=== PATIENT | male | born 1940 | race Caucasian/White ===

== ENCOUNTER 2020-03-19 15:56 | Inpatient (IN) | payer MEDICARE, OTHER ==
[2020-03-19] MEDS ORDERED: Acetaminophen 325 MG Tab PO PRN (16:34)
[2020-03-19] MEDS ORDERED: Albuterol/Ipratropium 3.0-0.5 MG/3 ML Neb Soln NEB PRN (16:34)
[2020-03-19] MEDS ORDERED: Ondansetron 4 MG/2 ML SDV IVPUSH PRN (16:34)
--- NOTE | 2020-03-19 16:44 | PCM.HP.2 ---
H&P History of Present Illness - General Date of Service: 03/19/20 Admit Problem/Dx: Admission Diagnosis/Problem Admission Diagnosis/Problem Hypoxia - History of Present Illness Initial Comments - Free Text/Narative: Patient is a 79 y/o M with PMH of prostate cancer, not on any treatment (reportedly slow growing), comes in from respiratory clinic as direct admit for acute hypoxic respiratory failure due to COVID19. Patient has been feeling worn out and tired for past week, He was recently tested for covid the results of that test were still pending, he states that one of his friends recently tested positive for covid so he suspected he had it as well. He lost his sense of smell and taste the last couple of days which is not getting better.. Patient came into the respiratory clinic today where he was checked for covid again which showed positive result. His oxygen saturation on room air was 88 to 89%, he was started on oxygen via nasal cannula which improved his oxygen levels. Chest xray was obtained which showed possible early signs of pneumonia. Patient was admitted to the hospital for management of acute hypoxic respiratory failure secondary to covid 19. - Related Data Allergies/Adverse Reactions: Allergies Allergy/AdvReac Type Severity Reaction Status Date / Time peanut Allergy Sneezing Verified 03/19/20 16:42 Home Medications: Home Meds Ubidecarenone [Co Q-10] 100 mg PO DAILY 03/19/20 [History] hydroCHLOROthiazide [Hydrochlorothiazide] 12.5 mg PO QAM 03/19/20 [History] lisinopriL [Prinivil] 20 mg PO DAILY 03/19/20 [History] H&P Review of Systems - Review of Systems: Review Of Systems: See Below General: Reports: Malaise, Weakness, Fatigue. Denies: Fever, Chills HEENT: Denies: Dysphasia, Ear Pain Pulmonary: Reports: Shortness of Breath, Cough. Denies: Wheezing, Pleuritic Chest Pain, Sputum Cardiovascular: Reports: Dyspnea on Exertion. Denies: Chest Pain, Palpitations, Orthopnea, Lightheadedness, Syncope Gastrointestinal: Reports: Anorexia. Denies: Abdominal Pain Genitourinary: Denies: Dysuria, Frequency, Burning Musculoskeletal: Denies: Neck Pain, Shoulder Pain, Arm Pain Skin: Denies: Cyanosis, Jaundice, Mottled Psychiatric: Denies: Confusion, Depression, Mood Lability Neurological: Reports: Headache. Denies: Confusion, Dizziness, Paresthesia, Seizure Exam - Exam Exam: See Below - Exam Quality Assessment: Supplemental Oxygen General: Alert, Oriented Neck: Supple, Trachea Midline Lungs: Normal Respiratory Effort, Decreased Breath Sounds, Rales Cardiovascular: Regular Rate, Regular Rhythm GI/Abdominal Exam: Normal Bowel Sounds, Soft, Non-Tender Skin: Warm, Intact - Problem List (1) Acute hypoxemic respiratory failure due to COVID-19 SNOMED Code(s): 384531186 ICD Code: U07.1 - COVID-19; J96.01 - ACUTE RESPIRATORY FAILURE WITH HYPOXIA Status: Acute Current Visit: Yes (2) Community acquired bacterial pneumonia SNOMED Code(s): 376433405, 033389624 ICD Code: J15.9 - UNSPECIFIED BACTERIAL PNEUMONIA Status: Acute Current Visit: Yes Problem List Initiated/Reviewed/Updated: Yes Orders Last 24hrs: Active Orders 24 hr Category Date Time Status Patient Status [ADT] Routine ADT 03/19/20 16:34 Active Ambulate [RC] PER UNIT ROUTINE Care 03/19/20 16:36 Active Antiembolic Devices [RC] PER UNIT ROUTINE Care 03/19/20 16:37 Active Oxygen Therapy [RC] PRN Care 03/19/20 16:34 Active Pulse Oximetry [RC] PRN Care 03/19/20 16:36 Active RT Aerosol Therapy [RC] ASDIRECTED Care 03/19/20 16:38 Active VTE/DVT Education [RC] PER UNIT ROUTINE Care 03/19/20 16:34 Active Vital Signs [RC] Q4H Care 03/19/20 16:34 Active CBC WITH AUTO DIFF [HEME] AM Lab 03/20/20 05:11 Ordered CMP [COMPREHENSIVE METABOLIC PN,CMP] [CHEM] AM Lab 03/20/20 05:11 Ordered MAGNESIUM [CHEM] AM Lab 03/20/20 05:11 Ordered PHOSPHORUS [CHEM] AM Lab 03/20/20 05:11 Ordered Acetaminophen [TylenoL] Med 03/19/20 16:34 Ordered 650 mg PO Q4H PRN Albuterol/Ipratropium [DuoNeb 3.0-0.5 MG/3 ML] Med 03/19/20 16:34 Ordered 3 ml NEB Q4HRRT PRN Enoxaparin [Lovenox] Med 03/19/20 16:45 Ordered 40 mg SUBCUT Q24H Ondansetron [Zofran] Med 03/19/20 16:34 Ordered 4 mg IVPUSH Q4H PRN Pantoprazole [ProTONIX IV] Med 03/19/20 16:45 Ordered 40 mg IV Q24H dexAMETHasone Med 03/19/20 16:45 Ordered 10 mg PO DAILY Sequential Compression Device [OM.PC] Per Unit Routine Oth 03/19/20 16:37 Ordered Medication Orders Acetaminophen (Tylenol) 650 mg PO Q4H PRN PRN Reason: Pain (Mild 1-3)/fever Albuterol/Ipratropium (Duoneb 3.0-0.5 Mg/3 Ml) 3 ml NEB Q4HRRT PRN PRN Reason: Shortness Of Breath/wheezing Dexamethasone (Dexamethasone) 10 mg PO DAILY ÁNGEL Enoxaparin Sodium (Lovenox) 40 mg SUBCUT Q24H ÁNGEL Ondansetron HCl (Zofran) 4 mg IVPUSH Q4H PRN PRN Reason: Nausea/Vomiting Pantoprazole Sodium (Protonix Iv) 40 mg IV Q24H ÁNGEL Assessment/Plan Comment:: 79-year-old male admitted for acute hypoxic respiratory failure secondary to COVID-19 and possible community acquired pneumonia. Admit to inpatient, start telling monitoring, start on supplemental oxygen via nasal cannula been down as tolerated. Start patient on remdesivir 200 mg IV loading those followed by 100 mg IV daily, consent has already been obtained. Start dexamethasone 6 mg oral for 10 days start Lovenox for DVT prophylaxis start azithromycin and ceftriaxone for community acquired pneumonia monitor and replete electrolytes as needed
[2020-03-19] MEDS ORDERED: Pantoprazole 40 MG Vial IV SCH (16:45)
[2020-03-19] MEDS: Dexamethasone 4 MG Tab PO SCH (17:23)
[2020-03-19] MEDS: Enoxaparin 40 MG/0.4 ML Syringe SUBCUT SCH (17:24)
[2020-03-19] MEDS: cefTRIAXone 1 GM in Premix Bag 1 BAG IV SCH (18:45)
[2020-03-19] MEDS: Pantoprazole 40 MG in Sodium Chloride 0.9% 10 ML IV SCH (18:46)
[2020-03-19] MEDS: Azithromycin 500 MG in Sodium Chloride 0.9% 250 ML IV SCH (20:05)
[2020-03-19] MEDS ORDERED: REMDESIVIR 200 MG in Sodium Chloride 0.9% 250 ML IV ONE (20:32)
[2020-03-20 06:17] LABS: BLOOD UREA NITROGEN,BUN 18 mg/dL (7.0-18.0); CARBON DIOXIDE,CO2 27.1 mmol/L (21.0-32.0); CHLORIDE,CL 99 mmol/L (98-107); GLUCOSE RANDOM 163 mg/dL (74-106); POTASSIUM,K 3.4 mmol/L (3.5-5.1); SODIUM,NA 134 mmol/L (136-148)
[2020-03-20] MEDS ORDERED: REMDESIVIR 100 MG in Sodium Chloride 0.9% 100 ML IV SCH (09:00)
[2020-03-20] MEDS: Dexamethasone 4 MG Tab PO SCH (09:06)
--- NOTE | 2020-03-20 13:09 | PCM.PN ---
- General Info Date of Service: 03/20/20 - Review of Systems Systems Review Comment:: feeling better, shortness of breath improving - Patient Data Vitals - Most Recent: Last Vital Signs Temp 36.1 C 03/20/20 11:36 Pulse 65 03/20/20 11:36 Resp 18 03/20/20 11:36 BP 130/73 03/20/20 11:36 Pulse Ox 93 L 03/20/20 11:36 Weight - Most Recent: 114.804 kg I&O - Last 24 Hours: Intake & Output 03/19/20 03/20/20 03/20/20 22:59 06:59 14:59 Intake Total 550 450 Output Total 600 Balance 550 -150 Lab Results Last 24 Hours: Laboratory Results - last 24 hr 03/20/20 03/20/20 Range/Units 05:27 05:27 WBC 1.90 L (4.0-11.0) K/uL RBC 4.56 (4.50-5.90) M/uL Hgb 14.0 (13.0-17.0) g/dL Hct 42.2 (38.0-50.0) % MCV 92.5 (80.0-98.0) fL MCH 30.7 (27.0-32.0) pg MCHC 33.2 (31.0-37.0) g/dL RDW Std Deviation 46.8 (28.0-62.0) fl RDW Coeff of Ellyn 14 (11.0-15.0) % Plt Count 118 L (150-400) K/uL MPV 11.20 (7.40-12.00) fL Add Manual Diff YES Neutrophils % (Manual) 69 (48.0-80.0) % Band Neutrophils % 2 % Lymphocytes % (Manual) 23 (16.0-40.0) % Monocytes % (Manual) 6 (0.0-15.0) % Nucleated RBC % 0.0 /100WBC Absolute Seg Neuts 1.3 L (1.4-5.7) Band Neutrophils # 0 Lymphocytes # (Manual) 0.4 L (0.6-2.4) Monocytes # (Manual) 0.1 (0.0-0.8) Nucleated RBCs # 0 K/uL Sodium 134 L (136-148) mmol/L Potassium 3.4 L (3.5-5.1) mmol/L Chloride 99 (98-107) mmol/L Carbon Dioxide 27.1 (21.0-32.0) mmol/L BUN 18 (7.0-18.0) mg/dL Creatinine 1.1 (0.8-1.3) mg/dL Est Cr Clr Drug Dosing 56.09 mL/min Estimated GFR (MDRD) > 60.0 ml/min Glucose 163 H (74-106) mg/dL Calcium 7.7 L (8.5-10.1) mg/dL Phosphorus 2.6 (2.6-4.7) mg/dL Magnesium 2.3 (1.8-2.4) mg/dL Total Bilirubin 0.5 (0.2-1.0) mg/dL AST 68 H (15-37) IU/L ALT 74 H (14-63) IU/L Alkaline Phosphatase 105 (46-116) U/L Total Protein 5.9 L (6.4-8.2) g/dL Albumin 2.7 L (3.4-5.0) g/dL Globulin 3.2 (2.6-4.0) g/dL Albumin/Globulin Ratio 0.8 L (0.9-1.6) Med Orders - Current: Current Medications Acetaminophen (Tylenol) 650 mg PO Q4H PRN PRN Reason: Pain (Mild 1-3)/fever Albuterol/Ipratropium (Duoneb 3.0-0.5 Mg/3 Ml) 3 ml NEB Q4HRRT PRN PRN Reason: Shortness Of Breath/wheezing Dexamethasone (Dexamethasone) 10 mg PO DAILY [facility] Last Admin: 03/20/20 09:06 Dose: 10 mg Documented by: Enoxaparin Sodium (Lovenox) 40 mg SUBCUT Q24H [facility] Last Admin: 03/19/20 17:24 Dose: 40 mg Documented by: Pantoprazole Sodium 40 mg/ (Sodium Chloride) 10 mls @ 300 mls/hr IV Q24H [facility] Last Admin: 03/19/20 18:46 Dose: 300 mls/hr Documented by: Azithromycin 500 mg/ Sodium (Chloride) 250 mls @ 250 mls/hr IV Q24H [facility] Last Admin: 03/19/20 20:05 Dose: 250 mls/hr Documented by: Ceftriaxone Sodium/Dextrose 1 (gm/ Premix) 50 mls @ 100 mls/hr IV Q24H [facility] Last Admin: 03/19/20 18:45 Dose: 100 mls/hr Documented by: Remdesivir 100 mg/ Sodium (Chloride) 100 mls @ 100 mls/hr IV Q24H [facility] Stop: 03/23/20 21:00 Ondansetron HCl (Zofran) 4 mg IVPUSH Q4H PRN PRN Reason: Nausea/Vomiting Discontinued Medications Remdesivir 200 mg/ Sodium (Chloride) 250 mls @ 250 mls/hr IV ONETIME ONE Stop: 03/19/20 20:33 Last Admin: 03/19/20 21:45 Dose: 250 mls/hr Documented by: - Exam General: Alert, Oriented Neck: Supple Lungs: Clear to Auscultation, Normal Respiratory Effort Cardiovascular: Regular Rate, Regular Rhythm Extremities: Non-Tender, No Pedal Edema Skin: Warm, Dry, Intact Sepsis Event Note - Evaluation Sepsis Screening Result: No Definite Risk - Focused Exam Vital Signs: Vital Signs Temp Pulse Resp BP Pulse Ox 03/20/20 11:36 36.1 C 65 18 130/73 93 L 03/20/20 09:13 18 93 L 03/20/20 07:51 36.9 C 62 18 124/79 96 03/20/20 04:52 36.1 C 56 L 18 118/74 92 L - Problem List Review Problem List Initiated/Reviewed/Updated: Yes - My Orders Last 24 Hours: My Active Orders 03/21/20 05:11 CBC WITH AUTO DIFF [HEME] AM COMPREHENSIVE METABOLIC PN,CMP [CHEM] AM 03/22/20 05:11 CBC WITH AUTO DIFF [HEME] AM COMPREHENSIVE METABOLIC PN,CMP [CHEM] AM 03/23/20 05:11 CBC WITH AUTO DIFF [HEME] AM COMPREHENSIVE METABOLIC PN,CMP [CHEM] AM 03/24/20 05:11 CBC WITH AUTO DIFF [HEME] AM COMPREHENSIVE METABOLIC PN,CMP [CHEM] AM - Plan Plan:: 79-year-old male admitted for acute hypoxic respiratory failure secondary to COVID-19 and possible community acquired pneumonia. Continue remdesivir, dexamethason and lovenox, wean O2 as tolerated azithromycin and ceftriaxone for community acquired pneumonia
[2020-03-20] MEDS ORDERED: Potassium Chloride 20 MEQ Tab.ER PO ONE (13:30)
[2020-03-20] MEDS: Pantoprazole 40 MG in Sodium Chloride 0.9% 10 ML IV SCH (17:12)
[2020-03-20] MEDS: cefTRIAXone 1 GM in Premix Bag 1 BAG IV SCH (17:13)
[2020-03-20] MEDS: Enoxaparin 40 MG/0.4 ML Syringe SUBCUT SCH (17:13)
[2020-03-20] MEDS: Azithromycin 500 MG in Sodium Chloride 0.9% 250 ML IV SCH (17:59)
[2020-03-20] MEDS: REMDESIVIR 100 MG in Sodium Chloride 0.9% 100 ML IV SCH (20:34)
[2020-03-21 06:44] LABS: BLOOD UREA NITROGEN,BUN 25 mg/dL (7.0-18.0); CARBON DIOXIDE,CO2 29.2 mmol/L (21.0-32.0); CHLORIDE,CL 101 mmol/L (98-107); GLUCOSE RANDOM 150 mg/dL (74-106); POTASSIUM,K 3.9 mmol/L (3.5-5.1); SODIUM,NA 137 mmol/L (136-148)
[2020-03-21] MEDS: Dexamethasone 4 MG Tab PO SCH (08:43)
[2020-03-21] MEDS ORDERED: Carboxymethylcellulose Sodium 0.5% Ophth Soln 0.4 ML UD Box of 30 EYEBOTH PRN (10:32)
--- NOTE | 2020-03-21 15:34 | PCM.PN ---
- General Info Date of Service: 03/21/20 - Review of Systems Systems Review Comment:: feeling better, still short of breath, fevers improving - Patient Data Vitals - Most Recent: Last Vital Signs Temp 36.2 C 03/21/20 11:23 Pulse 66 03/21/20 11:23 Resp 16 03/21/20 11:23 BP 107/56 L 03/21/20 11:23 Pulse Ox 93 L 03/21/20 11:23 Weight - Most Recent: 114.804 kg I&O - Last 24 Hours: Intake & Output 03/21/20 03/21/20 03/21/20 06:59 14:59 22:59 Intake Total 650 Output Total 820 Balance -170 Lab Results Last 24 Hours: Laboratory Results - last 24 hr 03/21/20 03/21/20 03/21/20 Range/Units 06:05 06:05 11:45 WBC 11.23 H (4.0-11.0) K/uL RBC 4.64 (4.50-5.90) M/uL Hgb 13.9 (13.0-17.0) g/dL Hct 43.1 (38.0-50.0) % MCV 92.9 (80.0-98.0) fL MCH 30.0 (27.0-32.0) pg MCHC 32.3 (31.0-37.0) g/dL RDW Std Deviation 47.5 (28.0-62.0) fl RDW Coeff of Ellyn 14 (11.0-15.0) % Plt Count 161 (150-400) K/uL MPV 11.80 (7.40-12.00) fL Neut % (Auto) 86.6 H (48.0-80.0) % Lymph % (Auto) 5.0 L (16.0-40.0) % [place] % (Auto) 8.4 (0.0-15.0) % Eos % (Auto) 0.0 (0.0-7.0) % Baso % (Auto) 0.0 (0.0-1.5) % Neut # (Auto) 9.7 H (1.4-5.7) K/uL Lymph # (Auto) 0.6 (0.6-2.4) K/uL [place] # (Auto) 0.9 H (0.0-0.8) K/uL Eos # (Auto) 0.0 (0.0-0.7) K/uL Baso # (Auto) 0.0 (0.0-0.1) K/uL Nucleated RBC % 0.0 /100WBC Nucleated RBCs # 0 K/uL Sodium 137 (136-148) mmol/L Potassium 3.9 (3.5-5.1) mmol/L Chloride 101 (98-107) mmol/L Carbon Dioxide 29.2 (21.0-32.0) mmol/L BUN 25 H (7.0-18.0) mg/dL Creatinine 1.1 (0.8-1.3) mg/dL Est Cr Clr Drug Dosing 56.09 mL/min Estimated GFR (MDRD) > 60.0 ml/min Glucose 150 H (74-106) mg/dL POC Glucose 154 H (60-110) mg/dL Calcium 7.5 L (8.5-10.1) mg/dL Total Bilirubin 0.5 (0.2-1.0) mg/dL AST 55 H (15-37) IU/L ALT 77 H (14-63) IU/L Alkaline Phosphatase 97 (46-116) U/L Total Protein 5.7 L (6.4-8.2) g/dL Albumin 2.6 L (3.4-5.0) g/dL Globulin 3.1 (2.6-4.0) g/dL Albumin/Globulin Ratio 0.8 L (0.9-1.6) Med Orders - Current: Current Medications Acetaminophen (Tylenol) 650 mg PO Q4H PRN PRN Reason: Pain (Mild 1-3)/fever Albuterol/Ipratropium (Duoneb 3.0-0.5 Mg/3 Ml) 3 ml NEB Q4HRRT PRN PRN Reason: Shortness Of Breath/wheezing Artificial Tears (Refresh Plus 0.5%) 1 each EYEBOTH ASDIRECTED PRN PRN Reason: Dry Eyes Last Admin: 03/21/20 11:20 Dose: 1 drop Documented by: Dexamethasone (Dexamethasone) 10 mg PO DAILY [facility] Last Admin: 03/21/20 08:43 Dose: 10 mg Documented by: Enoxaparin Sodium (Lovenox) 40 mg SUBCUT Q24H [facility] Last Admin: 03/20/20 17:13 Dose: 40 mg Documented by: Pantoprazole Sodium 40 mg/ (Sodium Chloride) 10 mls @ 300 mls/hr IV Q24H [facility] Last Admin: 03/20/20 17:12 Dose: 300 mls/hr Documented by: Azithromycin 500 mg/ Sodium (Chloride) 250 mls @ 250 mls/hr IV Q24H [facility] Last Admin: 03/20/20 17:59 Dose: 250 mls/hr Documented by: Ceftriaxone Sodium/Dextrose 1 (gm/ Premix) 50 mls @ 100 mls/hr IV Q24H [facility] Last Admin: 03/20/20 17:13 Dose: 100 mls/hr Documented by: Remdesivir 100 mg/ Sodium (Chloride) 100 mls @ 100 mls/hr IV Q24H [facility] Stop: 03/23/20 21:00 Last Admin: 03/20/20 20:34 Dose: 100 mls/hr Documented by: Ondansetron HCl (Zofran) 4 mg IVPUSH Q4H PRN PRN Reason: Nausea/Vomiting Discontinued Medications Remdesivir 200 mg/ Sodium (Chloride) 250 mls @ 250 mls/hr IV ONETIME ONE Stop: 03/19/20 20:33 Last Admin: 03/19/20 21:45 Dose: 250 mls/hr Documented by: Potassium Chloride (Klor-Con M20) 40 meq PO ONETIME ONE Stop: 03/20/20 13:31 Last Admin: 03/20/20 17:12 Dose: 40 meq Documented by: - Exam General: Alert, Oriented Neck: Supple Lungs: Clear to Auscultation, Normal Respiratory Effort Cardiovascular: Regular Rate, Regular Rhythm GI/Abdominal Exam: Soft, Non-Tender, No Distention Extremities: Non-Tender, No Pedal Edema Skin: Warm, Dry, Intact Neurological: No New Focal Deficit Sepsis Event Note - Evaluation Sepsis Screening Result: No Definite Risk - Focused Exam Vital Signs: Vital Signs Temp Pulse Resp BP Pulse Ox 03/21/20 11:23 36.2 C 66 16 107/56 L 93 L 03/21/20 08:45 36.1 C 61 16 118/66 92 L 03/21/20 04:00 36.8 C 72 18 130/75 93 L - Problem List Review Problem List Initiated/Reviewed/Updated: Yes - My Orders Last 24 Hours: My Active Orders 03/21/20 10:32 Carboxymethylcellulose Sodium [Refresh Plus 0.5%] 1 each EYEBOTH ASDIRECTED PRN 03/21/20 14:27 Discontinue Telemetry Monitoring [Cardiac Monitoring Discontinue] [RC] Click to Edit 03/22/20 05:11 CBC WITH AUTO DIFF [HEME] AM COMPREHENSIVE METABOLIC PN,CMP [CHEM] AM 03/23/20 05:11 CBC WITH AUTO DIFF [HEME] AM COMPREHENSIVE METABOLIC PN,CMP [CHEM] AM 03/24/20 05:11 CBC WITH AUTO DIFF [HEME] AM COMPREHENSIVE METABOLIC PN,CMP [CHEM] AM - Plan Plan:: 79-year-old male admitted for acute hypoxic respiratory failure secondary to COVID-19 and possible community acquired pneumonia. Continue remdesivir, dexamethason and lovenox, wean O2 as tolerated, currently on 2 L NC azithromycin and ceftriaxone for community acquired pneumonia
[2020-03-21] MEDS: Enoxaparin 40 MG/0.4 ML Syringe SUBCUT SCH (17:07)
[2020-03-21] MEDS: Pantoprazole 40 MG in Sodium Chloride 0.9% 10 ML IV SCH (17:07)
[2020-03-21] MEDS: cefTRIAXone 1 GM in Premix Bag 1 BAG IV SCH (17:11)
[2020-03-21] MEDS: Azithromycin 500 MG in Sodium Chloride 0.9% 250 ML IV SCH (17:53)
[2020-03-21] MEDS: REMDESIVIR 100 MG in Sodium Chloride 0.9% 100 ML IV SCH (19:57)
[2020-03-22 06:41] LABS: BLOOD UREA NITROGEN,BUN 29 mg/dL (7.0-18.0); CHLORIDE,CL 102 mmol/L (98-107); GLUCOSE RANDOM 139 mg/dL (74-106); POTASSIUM,K 3.9 mmol/L (3.5-5.1); SODIUM,NA 137 mmol/L (136-148)
[2020-03-22] MEDS: Dexamethasone 4 MG Tab PO SCH (08:56)
--- NOTE | 2020-03-22 13:55 | PCM.PN ---
- General Info Date of Service: 03/22/20 - Review of Systems Systems Review Comment:: feeling better, breathing has improved - Patient Data Vitals - Most Recent: Last Vital Signs Temp 36.2 C 03/22/20 12:31 Pulse 68 03/22/20 12:31 Resp 16 03/22/20 12:31 BP 114/55 L 03/22/20 12:31 Pulse Ox 93 L 03/22/20 12:31 Weight - Most Recent: 114.804 kg I&O - Last 24 Hours: Intake & Output 03/21/20 03/22/20 03/22/20 22:59 06:59 14:59 Intake Total 1430 500 Output Total 500 600 Balance 930 -100 Lab Results Last 24 Hours: Laboratory Results - last 24 hr 03/22/20 03/22/20 Range/Units 06:10 06:10 WBC 15.47 H (4.0-11.0) K/uL RBC 4.56 (4.50-5.90) M/uL Hgb 14.0 (13.0-17.0) g/dL Hct 42.5 (38.0-50.0) % MCV 93.2 (80.0-98.0) fL MCH 30.7 (27.0-32.0) pg MCHC 32.9 (31.0-37.0) g/dL RDW Std Deviation 47.9 (28.0-62.0) fl RDW Coeff of Ellyn 14 (11.0-15.0) % Plt Count 179 (150-400) K/uL MPV 11.40 (7.40-12.00) fL Neut % (Auto) 88.4 H (48.0-80.0) % Lymph % (Auto) 4.1 L (16.0-40.0) % [place] % (Auto) 7.4 (0.0-15.0) % Eos % (Auto) 0.0 (0.0-7.0) % Baso % (Auto) 0.1 (0.0-1.5) % Neut # (Auto) 13.7 H (1.4-5.7) K/uL Lymph # (Auto) 0.6 (0.6-2.4) K/uL [place] # (Auto) 1.1 H (0.0-0.8) K/uL Eos # (Auto) 0.0 (0.0-0.7) K/uL Baso # (Auto) 0.0 (0.0-0.1) K/uL Nucleated RBC % 0.0 /100WBC Nucleated RBCs # 0 K/uL Sodium 137 (136-148) mmol/L Potassium 3.9 (3.5-5.1) mmol/L Chloride 102 (98-107) mmol/L Carbon Dioxide 29.0 (21.0-32.0) mmol/L BUN 29 H (7.0-18.0) mg/dL Creatinine 1.1 (0.8-1.3) mg/dL Est Cr Clr Drug Dosing 56.09 mL/min Estimated GFR (MDRD) > 60.0 ml/min Glucose 139 H (74-106) mg/dL Calcium 7.5 L (8.5-10.1) mg/dL Total Bilirubin 0.5 (0.2-1.0) mg/dL AST 74 H (15-37) IU/L ALT 98 H (14-63) IU/L Alkaline Phosphatase 92 (46-116) U/L Total Protein 5.5 L (6.4-8.2) g/dL Albumin 2.6 L (3.4-5.0) g/dL Globulin 2.9 (2.6-4.0) g/dL Albumin/Globulin Ratio 0.9 (0.9-1.6) Med Orders - Current: Current Medications Acetaminophen (Tylenol) 650 mg PO Q4H PRN PRN Reason: Pain (Mild 1-3)/fever Albuterol/Ipratropium (Duoneb 3.0-0.5 Mg/3 Ml) 3 ml NEB Q4HRRT PRN PRN Reason: Shortness Of Breath/wheezing Artificial Tears (Refresh Plus 0.5%) 1 each EYEBOTH ASDIRECTED PRN PRN Reason: Dry Eyes Last Admin: 03/21/20 11:20 Dose: 1 drop Documented by: Dexamethasone (Dexamethasone) 10 mg PO DAILY [facility] Last Admin: 03/22/20 08:56 Dose: 10 mg Documented by: Enoxaparin Sodium (Lovenox) 40 mg SUBCUT Q24H [facility] Last Admin: 03/21/20 17:07 Dose: 40 mg Documented by: Pantoprazole Sodium 40 mg/ (Sodium Chloride) 10 mls @ 300 mls/hr IV Q24H [facility] Last Admin: 03/21/20 17:07 Dose: 300 mls/hr Documented by: Azithromycin 500 mg/ Sodium (Chloride) 250 mls @ 250 mls/hr IV Q24H [facility] Last Admin: 03/21/20 17:53 Dose: 250 mls/hr Documented by: Ceftriaxone Sodium/Dextrose 1 (gm/ Premix) 50 mls @ 100 mls/hr IV Q24H [facility] Last Admin: 03/21/20 17:11 Dose: 100 mls/hr Documented by: Remdesivir 100 mg/ Sodium (Chloride) 100 mls @ 100 mls/hr IV Q24H [facility] Stop: 03/23/20 21:00 Last Admin: 03/21/20 19:57 Dose: 100 mls/hr Documented by: Ondansetron HCl (Zofran) 4 mg IVPUSH Q4H PRN PRN Reason: Nausea/Vomiting Discontinued Medications Remdesivir 200 mg/ Sodium (Chloride) 250 mls @ 250 mls/hr IV ONETIME ONE Stop: 03/19/20 20:33 Last Admin: 03/19/20 21:45 Dose: 250 mls/hr Documented by: Potassium Chloride (Klor-Con M20) 40 meq PO ONETIME ONE Stop: 03/20/20 13:31 Last Admin: 03/20/20 17:12 Dose: 40 meq Documented by: - Exam General: Alert, Oriented Neck: Supple Lungs: Normal Respiratory Effort, Rhonchi Cardiovascular: Regular Rate, Regular Rhythm GI/Abdominal Exam: Soft, Non-Tender, No Distention Extremities: Non-Tender, No Pedal Edema Skin: Warm, Dry, Intact Neurological: No New Focal Deficit Sepsis Event Note - Evaluation Sepsis Screening Result: No Definite Risk - Focused Exam Vital Signs: Vital Signs Temp Pulse Resp BP Pulse Ox Pulse Ox 03/22/20 12:31 36.2 C 68 16 114/55 L 93 L 03/22/20 08:58 36.3 C 66 16 128/72 93 L 03/22/20 06:00 92 L 03/22/20 04:08 36.2 C 64 20 118/64 92 L - Problem List Review Problem List Initiated/Reviewed/Updated: Yes - My Orders Last 24 Hours: My Active Orders 03/21/20 14:27 Discontinue Telemetry Monitoring [Cardiac Monitoring Discontinue] [RC] Click to Edit 03/23/20 05:11 CBC WITH AUTO DIFF [HEME] AM COMPREHENSIVE METABOLIC PN,CMP [CHEM] AM 03/24/20 05:11 CBC WITH AUTO DIFF [HEME] AM COMPREHENSIVE METABOLIC PN,CMP [CHEM] AM - Plan Plan:: 79-year-old male admitted for acute hypoxic respiratory failure secondary to COVID-19 and possible community acquired pneumonia. Continue remdesivir, dexamethason and lovenox, wean O2 as tolerated, currently on 1.5 L NC azithromycin and ceftriaxone for community acquired pneumonia
[2020-03-22] MEDS: Enoxaparin 40 MG/0.4 ML Syringe SUBCUT SCH (17:39)
[2020-03-22] MEDS: cefTRIAXone 1 GM in Premix Bag 1 BAG IV SCH (17:40)
[2020-03-22] MEDS: Pantoprazole 40 MG in Sodium Chloride 0.9% 10 ML IV SCH (17:40)
[2020-03-22] MEDS: Azithromycin 500 MG in Sodium Chloride 0.9% 250 ML IV SCH (18:47)
[2020-03-22] MEDS: REMDESIVIR 100 MG in Sodium Chloride 0.9% 100 ML IV SCH (20:01)
[2020-03-23 06:41] LABS: BLOOD UREA NITROGEN,BUN 27 mg/dL (7.0-18.0); CARBON DIOXIDE,CO2 27.5 mmol/L (21.0-32.0); CHLORIDE,CL 103 mmol/L (98-107); GLUCOSE RANDOM 127 mg/dL (74-106); POTASSIUM,K 3.9 mmol/L (3.5-5.1); SODIUM,NA 138 mmol/L (136-148)
[2020-03-23] MEDS: Dexamethasone 4 MG Tab PO SCH (08:06)
--- NOTE | 2020-03-23 12:46 | PCM.PN ---
- General Info Date of Service: 03/23/20 - Review of Systems Systems Review Comment:: patient feeling better, shortness of breath has improve. Still has generalized weakness - Patient Data Vitals - Most Recent: Last Vital Signs Temp 36.2 C 03/23/20 12:00 Pulse 63 03/23/20 12:00 Resp 16 03/23/20 12:00 BP 122/70 03/23/20 12:00 Pulse Ox 92 L 03/23/20 12:00 Weight - Most Recent: 114.804 kg I&O - Last 24 Hours: Intake & Output 03/22/20 03/23/20 03/23/20 22:59 06:59 14:59 Intake Total 720 375 Output Total 850 600 Balance -130 -225 Lab Results Last 24 Hours: Laboratory Results - last 24 hr 03/23/20 03/23/20 Range/Units 05:53 05:53 WBC 12.77 H (4.0-11.0) K/uL RBC 4.67 (4.50-5.90) M/uL Hgb 14.0 (13.0-17.0) g/dL Hct 43.6 (38.0-50.0) % MCV 93.4 (80.0-98.0) fL MCH 30.0 (27.0-32.0) pg MCHC 32.1 (31.0-37.0) g/dL RDW Std Deviation 48.1 (28.0-62.0) fl RDW Coeff of Ellyn 14 (11.0-15.0) % Plt Count 182 (150-400) K/uL MPV 11.30 (7.40-12.00) fL Neut % (Auto) 85.1 H (48.0-80.0) % Lymph % (Auto) 4.5 L (16.0-40.0) % [place] % (Auto) 10.3 (0.0-15.0) % Eos % (Auto) 0.0 (0.0-7.0) % Baso % (Auto) 0.1 (0.0-1.5) % Neut # (Auto) 10.9 H (1.4-5.7) K/uL Lymph # (Auto) 0.6 (0.6-2.4) K/uL [place] # (Auto) 1.3 H (0.0-0.8) K/uL Eos # (Auto) 0.0 (0.0-0.7) K/uL Baso # (Auto) 0.0 (0.0-0.1) K/uL Nucleated RBC % 0.0 /100WBC Nucleated RBCs # 0 K/uL Sodium 138 (136-148) mmol/L Potassium 3.9 (3.5-5.1) mmol/L Chloride 103 (98-107) mmol/L Carbon Dioxide 27.5 (21.0-32.0) mmol/L BUN 27 H (7.0-18.0) mg/dL Creatinine 1.1 (0.8-1.3) mg/dL Est Cr Clr Drug Dosing 56.09 mL/min Estimated GFR (MDRD) > 60.0 ml/min Glucose 127 H (74-106) mg/dL Calcium 7.4 L (8.5-10.1) mg/dL Total Bilirubin 0.5 (0.2-1.0) mg/dL AST 101 H (15-37) IU/L ALT 153 H (14-63) IU/L Alkaline Phosphatase 94 (46-116) U/L Total Protein 5.5 L (6.4-8.2) g/dL Albumin 2.6 L (3.4-5.0) g/dL Globulin 2.9 (2.6-4.0) g/dL Albumin/Globulin Ratio 0.9 (0.9-1.6) Med Orders - Current: Current Medications Acetaminophen (Tylenol) 650 mg PO Q4H PRN PRN Reason: Pain (Mild 1-3)/fever Albuterol/Ipratropium (Duoneb 3.0-0.5 Mg/3 Ml) 3 ml NEB Q4HRRT PRN PRN Reason: Shortness Of Breath/wheezing Artificial Tears (Refresh Plus 0.5%) 1 each EYEBOTH ASDIRECTED PRN PRN Reason: Dry Eyes Last Admin: 03/21/20 11:20 Dose: 1 drop Documented by: Dexamethasone (Dexamethasone) 10 mg PO DAILY [facility] Last Admin: 03/23/20 08:06 Dose: 10 mg Documented by: Enoxaparin Sodium (Lovenox) 40 mg SUBCUT Q24H [facility] Last Admin: 03/22/20 17:39 Dose: 40 mg Documented by: Pantoprazole Sodium 40 mg/ (Sodium Chloride) 10 mls @ 300 mls/hr IV Q24H [facility] Last Admin: 03/22/20 17:40 Dose: 300 mls/hr Documented by: Azithromycin 500 mg/ Sodium (Chloride) 250 mls @ 250 mls/hr IV Q24H [facility] Last Admin: 03/22/20 18:47 Dose: 250 mls/hr Documented by: Ceftriaxone Sodium/Dextrose 1 (gm/ Premix) 50 mls @ 100 mls/hr IV Q24H [facility] Last Admin: 03/22/20 17:40 Dose: 100 mls/hr Documented by: Remdesivir 100 mg/ Sodium (Chloride) 100 mls @ 100 mls/hr IV Q24H [facility] Stop: 03/23/20 21:00 Last Admin: 03/22/20 20:01 Dose: 100 mls/hr Documented by: Ondansetron HCl (Zofran) 4 mg IVPUSH Q4H PRN PRN Reason: Nausea/Vomiting Discontinued Medications Remdesivir 200 mg/ Sodium (Chloride) 250 mls @ 250 mls/hr IV ONETIME ONE Stop: 03/19/20 20:33 Last Admin: 03/19/20 21:45 Dose: 250 mls/hr Documented by: Potassium Chloride (Klor-Con M20) 40 meq PO ONETIME ONE Stop: 03/20/20 13:31 Last Admin: 03/20/20 17:12 Dose: 40 meq Documented by: - Exam General: Alert, Oriented Neck: Supple Lungs: Clear to Auscultation, Normal Respiratory Effort Cardiovascular: Regular Rate, Regular Rhythm GI/Abdominal Exam: Soft, Non-Tender, No Distention Extremities: Non-Tender, No Pedal Edema Skin: Warm, Dry, Intact Neurological: No New Focal Deficit Sepsis Event Note - Evaluation Sepsis Screening Result: No Definite Risk - Focused Exam Vital Signs: Vital Signs Temp Pulse Resp BP BP Pulse Ox Pulse Ox 03/23/20 12:00 36.2 C 63 16 122/70 92 L 03/23/20 11:00 92 L 03/23/20 08:10 36.2 C 63 18 125/77 92 L 03/23/20 04:09 36.2 C 60 19 139/76 93 L - Problem List Review Problem List Initiated/Reviewed/Updated: Yes - My Orders Last 24 Hours: My Active Orders 03/24/20 05:11 CBC WITH AUTO DIFF [HEME] AM COMPREHENSIVE METABOLIC PN,CMP [CHEM] AM - Plan Plan:: 79-year-old male admitted for acute hypoxic respiratory failure secondary to COVID-19 and possible community acquired pneumonia. day 5 of remdesivir, dexamethasone and lovenox, wean O2 as tolerated, currently on 1 L NC azithromycin and ceftriaxone for community acquired pneumonia Anticipate discharge home tomorrow.
[2020-03-23] MEDS: Enoxaparin 40 MG/0.4 ML Syringe SUBCUT SCH (16:38)
[2020-03-23] MEDS: Pantoprazole 40 MG in Sodium Chloride 0.9% 10 ML IV SCH (16:39)
[2020-03-23] MEDS: cefTRIAXone 1 GM in Premix Bag 1 BAG IV SCH (16:45)
[2020-03-23] MEDS: Azithromycin 500 MG in Sodium Chloride 0.9% 250 ML IV SCH (17:19)
[2020-03-23] MEDS: REMDESIVIR 100 MG in Sodium Chloride 0.9% 100 ML IV SCH (20:12)
[2020-03-24 06:42] LABS: BLOOD UREA NITROGEN,BUN 30 mg/dL (7.0-18.0); CARBON DIOXIDE,CO2 27.9 mmol/L (21.0-32.0); CHLORIDE,CL 105 mmol/L (98-107); GLUCOSE RANDOM 124 mg/dL (74-106); SODIUM,NA 138 mmol/L (136-148)
[2020-03-24] MEDS: Dexamethasone 4 MG Tab PO SCH (09:41)
--- NOTE | 2020-03-24 14:23 | PCM.DCSUM1 ---
Discharge Summary - Discharge Data Discharge Date: 03/24/20 Discharge Disposition: Home, Self-Care 01 Condition: Good - Referral to Home Health Primary Care Physician: Gabriella Dominguez MD - Patient Summary/Data Hospital Course: 79 y/o M with PMH of prostate cancer, directly admitted for acute hypoxic respiratory failure due to COVID19. Patient came into the respiratory clinic where his oxygen saturation on room air was 88 to 89%. He was started on oxygen via nasal cannula which improved his oxygen levels. Chest xray was obtained which showed possible early signs of pneumonia. Patient was treated with dexamethasone, and Remdesivir. He was also given Rocephin and azithromycin. He was weaned off his oxygen after six days and today he is requesting discharge. He will follow up with [facility]. - Discharge Plan Prescriptions/Med Rec: dexAMETHasone [Decadron] 6 mg PO DAILY #4 tablet Home Medications: Home Meds Ubidecarenone [Co Q-10] 100 mg PO DAILY 03/19/20 [History] hydroCHLOROthiazide [Hydrochlorothiazide] 12.5 mg PO QAM 03/19/20 [History] lisinopriL [Prinivil] 20 mg PO DAILY 03/19/20 [History] dexAMETHasone [Decadron] 6 mg PO DAILY #4 tablet 03/24/20 [Rx] Patient Handouts: COVID-19 Frequently Asked Questions, COVID-19, COVID-19: How to Protect Yourself and Others - [facility] Referrals: Jennifer Lyons PA [Physician [employer]] - 04/07/20 9:00 am (Please bring insurance, identification and your own facemask.) - Discharge Summary/Plan Comment DC Time >30 min.: No - Patient Data Vitals - Most Recent: Last Vital Signs Temp 36.2 C 03/24/20 12:00 Pulse 62 03/24/20 12:00 Resp 16 03/24/20 12:00 BP 122/72 03/24/20 12:00 Pulse Ox 92 L 03/24/20 12:00 Weight - Most Recent: 114.804 kg I&O - Last 24 hours: Intake & Output 03/23/20 03/24/20 03/24/20 22:59 06:59 14:59 Intake Total 1010 650 Output Total 640 720 Balance 370 -70 Lab Results - Last 24 hrs: Laboratory Results - last 24 hr 03/24/20 03/24/20 Range/Units 05:26 05:26 WBC 12.47 H (4.0-11.0) K/uL RBC 4.58 (4.50-5.90) M/uL Hgb 14.1 (13.0-17.0) g/dL Hct 42.8 (38.0-50.0) % MCV 93.4 (80.0-98.0) fL MCH 30.8 (27.0-32.0) pg MCHC 32.9 (31.0-37.0) g/dL RDW Std Deviation 48.2 (28.0-62.0) fl RDW Coeff of Ellyn 14 (11.0-15.0) % Plt Count 198 (150-400) K/uL MPV 11.80 (7.40-12.00) fL Add Manual Diff YES Neutrophils % (Manual) 85 H (48.0-80.0) % Band Neutrophils % 1 % Lymphocytes % (Manual) 10 L (16.0-40.0) % Monocytes % (Manual) 4 (0.0-15.0) % Nucleated RBC % 0.0 /100WBC Absolute Seg Neuts 10.6 H (1.4-5.7) Band Neutrophils # 0.1 Lymphocytes # (Manual) 1.2 (0.6-2.4) Monocytes # (Manual) 0.5 (0.0-0.8) Nucleated RBCs # 0 K/uL Sodium 138 (136-148) mmol/L Potassium 4.0 (3.5-5.1) mmol/L Chloride 105 (98-107) mmol/L Carbon Dioxide 27.9 (21.0-32.0) mmol/L BUN 30 H (7.0-18.0) mg/dL Creatinine 1.0 (0.8-1.3) mg/dL Est Cr Clr Drug Dosing 61.70 mL/min Estimated GFR (MDRD) > 60.0 ml/min Glucose 124 H (74-106) mg/dL Calcium 7.6 L (8.5-10.1) mg/dL Total Bilirubin 0.5 (0.2-1.0) mg/dL AST 72 H (15-37) IU/L ALT 155 H (14-63) IU/L Alkaline Phosphatase 90 (46-116) U/L Total Protein 5.4 L (6.4-8.2) g/dL Albumin 2.5 L (3.4-5.0) g/dL Globulin 2.9 (2.6-4.0) g/dL Albumin/Globulin Ratio 0.9 (0.9-1.6) Med Orders - Current: Current Medications Acetaminophen (Tylenol) 650 mg PO Q4H PRN PRN Reason: Pain (Mild 1-3)/fever Albuterol/Ipratropium (Duoneb 3.0-0.5 Mg/3 Ml) 3 ml NEB Q4HRRT PRN PRN Reason: Shortness Of Breath/wheezing Artificial Tears (Refresh Plus 0.5%) 1 each EYEBOTH ASDIRECTED PRN PRN Reason: Dry Eyes Last Admin: 03/21/20 11:20 Dose: 1 drop Documented by: Dexamethasone (Dexamethasone) 10 mg PO DAILY [facility] Last Admin: 03/24/20 09:41 Dose: 10 mg Documented by: Enoxaparin Sodium (Lovenox) 40 mg SUBCUT Q24H [facility] Last Admin: 03/23/20 16:38 Dose: 40 mg Documented by: Pantoprazole Sodium 40 mg/ (Sodium Chloride) 10 mls @ 300 mls/hr IV Q24H [facility] Last Admin: 03/23/20 16:39 Dose: 300 mls/hr Documented by: Azithromycin 500 mg/ Sodium (Chloride) 250 mls @ 250 mls/hr IV Q24H [facility] Last Admin: 03/23/20 17:19 Dose: 250 mls/hr Documented by: Ceftriaxone Sodium/Dextrose 1 (gm/ Premix) 50 mls @ 100 mls/hr IV Q24H [facility] Last Admin: 03/23/20 16:45 Dose: 100 mls/hr Documented by: Ondansetron HCl (Zofran) 4 mg IVPUSH Q4H PRN PRN Reason: Nausea/Vomiting Discontinued Medications Remdesivir 200 mg/ Sodium (Chloride) 250 mls @ 250 mls/hr IV ONETIME ONE Stop: 03/19/20 20:33 Last Admin: 03/19/20 21:45 Dose: 250 mls/hr Documented by: Remdesivir 100 mg/ Sodium (Chloride) 100 mls @ 100 mls/hr IV Q24H [facility] Stop: 03/23/20 21:00 Last Admin: 03/23/20 20:12 Dose: 100 mls/hr Documented by: Potassium Chloride (Klor-Con M20) 40 meq PO ONETIME ONE Stop: 03/20/20 13:31 Last Admin: 03/20/20 17:12 Dose: 40 meq Documented by:
== END 2020-03-24 15:40 | disposition home or self-care (01) | DRG 177 ==
LOC: MW.MS 15:56
PROVIDERS: ADMIT Student in an Organized Health Care Education/Training Program; ATTEND Student in an Organized Health Care Education/Training Program
PROC: XW033E5 Introduction of Remdesivir Anti-infective into Peripheral Vein, Percutaneous Approach, New Technology Group 5 (ICD-10-PCS; principal; 2020-03-19)
DX: U07.1 COVID-19 (principal); J96.01 Acute respiratory failure with hypoxia; J18.9 Pneumonia, unspecified organism; Z85.46 Personal history of malignant neoplasm of prostate; Z91.010 Allergy to peanuts; Z79.899 Other long term (current) drug therapy
CPT/HCPCS: 36415; 80053; 82962; 83735; 84100; 85025; 99221; 99231; 99238; A9270-GY; C9113; J0456; J0696; J1650; J7050; J8540

== ENCOUNTER 2021-12-22 08:39 | Emergency (ER) | payer MEDICARE, OTHER ==
[2021-12-22] MEDS ORDERED: Diltiazem 50 MG/10 ML SDV IVPUSH ONE (08:58)
[2021-12-22] MEDS ORDERED: Aspirin 81 MG Tab.Chew PO ONE (08:59)
[2021-12-22] MEDS ORDERED: Sodium Chloride 0.9% 1,000 ML IV ONE (08:59)
[2021-12-22] MEDS ORDERED: Sodium Chloride 0.9% 2.5 ML Syringe FLUSH PRN (08:59)
[2021-12-22] MEDS ORDERED: Sodium Chloride 0.9% 10 ML Syringe FLUSH PRN (08:59)
[2021-12-22] MEDS ORDERED: Diltiazem 100 MG in Sodium Chloride 0.9% 100 ML IV SCH (09:00)
[2021-12-22] MEDS ORDERED: Diltiazem 100 MG in Sodium Chloride 0.9% 100 ML IV STA (09:14)
[2021-12-22 10:04] LABS: BLOOD UREA NITROGEN,BUN 22 mg/dL (7.0-18.0); CARBON DIOXIDE,CO2 23.4 mmol/L (21.0-32.0); CHLORIDE,CL 105 mmol/L (98-107); ESTIMATED GFR 60 mL/min (>60); GLUCOSE RANDOM 116 mg/dL (74-106); POTASSIUM,K 3.6 mmol/L (3.5-5.1); SODIUM,NA 141 mmol/L (136-148)
[2021-12-22] MEDS ORDERED: Diltiazem 120 MG Cap.CD PO STA (12:11)
== END 2021-12-22 12:49 | disposition home or self-care (01) ==
LOC: MW.ED 08:39
DX: I47.1 Supraventricular tachycardia (principal); I10 Essential (primary) hypertension; Z20.822 Contact with and (suspected) exposure to COVID-19; Z91.010 Allergy to peanuts; Z79.899 Other long term (current) drug therapy
CPT/HCPCS: 36415; 71045; 80053; 80307; 81003; 82728; 83735; 84443; 84484; 85025; 85610; 85730; 96361; 96374; 99214; 99285; A9270; J3490; J7030; U0002; 93010; 99284

== ENCOUNTER 2023-08-03 16:45 | Emergency (ER) | payer MEDICARE, OTHER ==
[2023-08-03] MEDS: Sulfamethoxazole/Trimethoprim 800-160 MG Tab PO STA (20:24)
== END 2023-08-03 20:28 | disposition home or self-care (01) ==
LOC: MW.ED 16:45
DX: L03.116 Cellulitis of left lower limb (principal); I10 Essential (primary) hypertension; E03.9 Hypothyroidism, unspecified; Z91.010 Allergy to peanuts; Z90.49 Acquired absence of other specified parts of digestive tract; Z79.899 Other long term (current) drug therapy
CPT/HCPCS: 93971; 99283; A9270

== ENCOUNTER 2024-06-22 23:41 | Emergency (ER) | payer OTHER, MEDICARE ==
[2024-06-23] MEDS: Bacitracin Oint 28.35 GM Tube TOP ONE (00:22)
== END 2024-06-23 01:00 | disposition home or self-care (01) ==
LOC: MW.ED 23:41
DX: S81.801A Unspecified open wound, right lower leg, initial encounter (principal); I10 Essential (primary) hypertension; Z79.899 Other long term (current) drug therapy; Z91.010 Allergy to peanuts; Z90.49 Acquired absence of other specified parts of digestive tract; X58.XXXA Exposure to other specified factors, initial encounter
CPT/HCPCS: 99283; A9270

== ENCOUNTER 2024-11-30 11:23 | Emergency (ER) | payer MEDICARE, OTHER ==
[2024-11-30 11:56] LABS: BASOPHILS ABSOLUTE AUTO 0.05 K/uL (0.00-0.20); BASOPHILS PERCENT AUTO 0.5 % (0.0-1.0); EOSINOPHILS ABSOLUTE AUTO 0.26 K/uL (0.00-0.45); EOSINOPHILS PERCENT AUTO 2.7 % (0.0-6.0); HEMATOCRIT 44.5 % (42.0-52.0); HEMOGLOBIN 15.1 g/dL (14.0-18.0); IMMATURE GRAN ABSOLUTE AUTO 0.04 K/uL (0.00-0.05); IMMATURE GRAN PERCENT AUTO 0.4 % (0.0-0.4); LYMPHOCYTES ABSOLUTE AUTO 1.93 K/uL (1.00-4.80); LYMPHOCYTES PERCENT AUTO 19.8 % (24.0-44.0); MEAN CORPUSCULAR HEMOGLOBIN 31.5 pg (28.0-32.0); MEAN CORPUSCULAR HGB CONC 33.9 g/dL (32.0-36.0); MEAN CORPUSCULAR VOLUME 92.9 fL (83.0-99.0); MEAN PLATELET VOLUME 9.5 fL (9.4-12.4); MONOCYTES ABSOLUTE AUTO 1.21 K/uL (0.00-0.80); MONOCYTES PERCENT AUTO 12.4 % (0.0-8.0); NEUTROPHILS ABSOLUTE AUTO 6.25 K/uL (1.80-7.70); NEUTROPHILS PERCENT AUTO 64.2 % (41.0-71.0); PLATELET COUNT,PLT 223 K/uL (150-400); RED BLOOD CELL COUNT 4.79 M/uL (4.52-5.90); WHITE BLOOD CELL COUNT,WBC 9.74 K/uL (3.9-11.3)
[2024-11-30 12:24] LABS: ALBUMIN 3.2 g/dL (3.4-5.0); BILIRUBIN TOTAL 0.9 mg/dL (0.2-1.0); CALCIUM 8.4 mg/dL (8.5-10.1); CARBON DIOXIDE,CO2 25.7 mmol/L (21.0-32.0); CREATININE 1.2 mg/dL (0.8-1.3); EST CRCL DRUG DOSING (CG) 44.19 mL/min; POTASSIUM,K 3.7 mmol/L (3.5-5.1); PROTEIN TOTAL,TP 6.4 g/dL (6.4-8.2)
== END 2024-11-30 14:18 | disposition home or self-care (01) ==
LOC: MW.ED 11:23
DX: S89.92XA Unspecified injury of left lower leg, initial encounter (principal); I10 Essential (primary) hypertension; K21.9 Gastro-esophageal reflux disease without esophagitis; E03.9 Hypothyroidism, unspecified; Z91.010 Allergy to peanuts; Z79.899 Other long term (current) drug therapy; Z75.3 Unavailability and inaccessibility of health-care facilities; Z87.891 Personal history of nicotine dependence; W18.39XA Other fall on same level, initial encounter; Y93.89 Activity, other specified
CPT/HCPCS: 36415; 73560-26-LT; 73560-LT; 80053; 85025; 93971-26-LT; 93971-LT; 99284

== ENCOUNTER 2024-12-26 17:43 | Emergency (ER) | payer MEDICARE, OTHER ==
[2024-12-26 18:57] LABS: BASOPHILS ABSOLUTE AUTO 0.04 K/uL (0.00-0.20); BASOPHILS PERCENT AUTO 0.4 % (0.0-1.0); EOSINOPHILS ABSOLUTE AUTO 0.23 K/uL (0.00-0.45); EOSINOPHILS PERCENT AUTO 2.3 % (0.0-6.0); IMMATURE GRAN ABSOLUTE AUTO 0.04 K/uL (0.00-0.05); IMMATURE GRAN PERCENT AUTO 0.4 % (0.0-0.4); LYMPHOCYTES ABSOLUTE AUTO 2.08 K/uL (1.00-4.80); LYMPHOCYTES PERCENT AUTO 21.1 % (24.0-44.0); MEAN PLATELET VOLUME 9.8 fL (9.4-12.4); MONOCYTES ABSOLUTE AUTO 1.01 K/uL (0.00-0.80); MONOCYTES PERCENT AUTO 10.3 % (0.0-8.0); NEUTROPHILS ABSOLUTE AUTO 6.45 K/uL (1.80-7.70); NEUTROPHILS PERCENT AUTO 65.5 % (41.0-71.0); NRBC ABSOLUTE 0.00 K/uL (0.00-0.02); NRBC PERCENT 0.0 /100WBC (0.0-0.2); PLATELET COUNT,PLT 235 K/uL (150-400); RED BLOOD CELL COUNT 4.73 M/uL (4.52-5.90); WHITE BLOOD CELL COUNT,WBC 9.85 K/uL (3.9-11.3)
[2024-12-26 19:41] LABS: A/G RATIO 1.2 (0.9-1.6); ALANINE AMINOTRANSFERASE,ALT 48.0 IU/L (14-63); ASPARTATE AMNIOTRANSFERASE,AST 30.0 IU/L (15-37); BILIRUBIN TOTAL 0.8 mg/dL (0.2-1.0); BLOOD UREA NITROGEN,BUN 15.0 mg/dL (7.0-18.0); CARBON DIOXIDE,CO2 27.1 mmol/L (21.0-32.0); CHLORIDE,CL 107.0 mmol/L (98-107); CREATININE 1.2 mg/dL (0.8-1.3); EST CRCL DRUG DOSING (CG) 45.63 mL/min; GLUCOSE RANDOM 106.0 mg/dL (74-106); POTASSIUM,K 4.1 mmol/L (3.5-5.1); PROTEIN TOTAL,TP 6.4 g/dL (6.4-8.2); SODIUM,NA 143.0 mmol/L (136-148)
[2024-12-26 19:44] LABS: ESTIMATED GFR 59.0 mL/min (>60)
== END 2024-12-26 23:56 | disposition home or self-care (01) ==
LOC: MW.ED 17:43
DX: R00.1 Bradycardia, unspecified (principal); I11.0 Hypertensive heart disease with heart failure; I50.9 Heart failure, unspecified; I25.10 Atherosclerotic heart disease of native coronary artery without angina pectoris; F17.200 Nicotine dependence, unspecified, uncomplicated; Z90.49 Acquired absence of other specified parts of digestive tract; Z91.010 Allergy to peanuts; Z79.899 Other long term (current) drug therapy
CPT/HCPCS: 36415; 71045; 71045-26; 80053; 83735; 84484; 85025; 93005; 99283; 99284

== ENCOUNTER 2025-01-12 18:38 | Emergency (ER) | payer MEDICARE, OTHER ==
[2025-01-12] MEDS: Bacitracin Oint 1 GM U/D Packet TOP ONE (19:17)
== END 2025-01-12 19:26 | disposition home or self-care (01) ==
LOC: MW.ED 18:38
DX: L03.116 Cellulitis of left lower limb (principal); I10 Essential (primary) hypertension; I25.2 Old myocardial infarction; E03.9 Hypothyroidism, unspecified; Z91.010 Allergy to peanuts; Z79.899 Other long term (current) drug therapy; Z90.49 Acquired absence of other specified parts of digestive tract
CPT/HCPCS: 99283; A9270

== ENCOUNTER 2025-01-16 13:21 | Emergency (ER) | payer MEDICARE, OTHER | END 2025-01-16 13:40 | disposition left against medical advice (07) | LOC: MW.ED 13:21 | DX: Z53.21 Procedure and treatment not carried out due to patient leaving prior to being seen by health care provider (principal) ==

== ENCOUNTER 2025-03-31 19:31 | Emergency (ER) | payer MEDICARE, OTHER ==
[2025-03-31] MEDS: Metoprolol Tartrate 5 MG/5 ML SDV IVPUSH ONE (20:07)
[2025-03-31 20:19] LABS: BASOPHILS ABSOLUTE AUTO 0.08 K/uL (0.00-0.20); BASOPHILS PERCENT AUTO 0.7 % (0.0-1.0); EOSINOPHILS ABSOLUTE AUTO 0.38 K/uL (0.00-0.45); EOSINOPHILS PERCENT AUTO 3.2 % (0.0-6.0); IMMATURE GRAN ABSOLUTE AUTO 0.03 K/uL (0.00-0.05); IMMATURE GRAN PERCENT AUTO 0.3 % (0.0-0.4); LYMPHOCYTES ABSOLUTE AUTO 3.66 K/uL (1.00-4.80); LYMPHOCYTES PERCENT AUTO 30.6 % (24.0-44.0); MEAN PLATELET VOLUME 10.7 fL (9.4-12.4); MONOCYTES ABSOLUTE AUTO 1.33 K/uL (0.00-0.80); MONOCYTES PERCENT AUTO 11.1 % (0.0-8.0); NEUTROPHILS ABSOLUTE AUTO 6.48 K/uL (1.80-7.70); NEUTROPHILS PERCENT AUTO 54.1 % (41.0-71.0); NRBC ABSOLUTE 0.00 K/uL (0.00-0.02); NRBC PERCENT 0.0 /100WBC (0.0-0.2); PLATELET COUNT,PLT 242 K/uL (150-400); RED BLOOD CELL COUNT 4.88 M/uL (4.52-5.90); WHITE BLOOD CELL COUNT,WBC 11.96 K/uL (3.9-11.3)
[2025-03-31 20:35] LABS: A/G RATIO 1.1 (0.9-1.6); ALANINE AMINOTRANSFERASE,ALT 40.0 IU/L (14-63); ASPARTATE AMNIOTRANSFERASE,AST 28.0 IU/L (15-37); BILIRUBIN TOTAL 0.4 mg/dL (0.2-1.0); BLOOD UREA NITROGEN,BUN 19.0 mg/dL (7.0-18.0); CARBON DIOXIDE,CO2 26.4 mmol/L (21.0-32.0); CHLORIDE,CL 107.0 mmol/L (98-107); CREATININE 1.2 mg/dL (0.8-1.3); EST CRCL DRUG DOSING (CG) 47.06 mL/min; GLUCOSE RANDOM 128.0 mg/dL (74-106); POTASSIUM,K 3.7 mmol/L (3.5-5.1); PROTEIN TOTAL,TP 7.0 g/dL (6.4-8.2); SODIUM,NA 145.0 mmol/L (136-148)
[2025-03-31 20:44] LABS: ESTIMATED GFR 59.0 mL/min (>60)
== END 2025-03-31 23:14 | disposition home or self-care (01) ==
LOC: MW.ED 19:31
DX: I48.91 Unspecified atrial fibrillation (principal); I10 Essential (primary) hypertension; K21.9 Gastro-esophageal reflux disease without esophagitis; E03.9 Hypothyroidism, unspecified; Z91.010 Allergy to peanuts; Z79.01 Long term (current) use of anticoagulants; Z79.899 Other long term (current) drug therapy
CPT/HCPCS: 36415; 71045; 80053; 84484; 85025; 93005; 96374; 99285; J3490; 93010; 99284

== ENCOUNTER 2025-04-19 15:28 | Emergency (ER) | payer OTHER, MEDICARE ==
[2025-04-19 16:06] LABS: MEAN PLATELET VOLUME 10.3 fL (9.4-12.4); NRBC ABSOLUTE 0.00 K/uL (0.00-0.02); NRBC PERCENT 0.0 /100WBC (0.0-0.2); PLATELET COUNT,PLT 237 K/uL (150-400); RED BLOOD CELL COUNT 3.83 M/uL (4.52-5.90); WHITE BLOOD CELL COUNT,WBC 19.47 K/uL (3.9-11.3)
[2025-04-19 16:21] LABS: INR 1.21 (0.86-1.11); PTT,PARTIAL THROMBOPLSTIN TIME 25.6 SEC (23.9-30.7)
[2025-04-19 16:26] LABS: EOSINOPHILS ABSOLUTE MAN 0.78 K/uL (0.00-0.45); EOSINOPHILS PERCENT MAN 4 % (0-6); LYMPHOCYTES ABSOLUTE MAN 3.50 K/uL (1.00-4.80); LYMPHOCYTES PERCENT MAN 18 % (24-44); MONOCYTES ABSOLUTE MAN 2.14 K/uL (0.00-0.80); MONOCYTES PERCENT MAN 11 % (0-8); SEG NEUTROPHILS ABSOLUTE MAN 13.04 K/uL (1.80-7.70); SEG NEUTROPHILS PERCENT MAN 67 % (41-71)
[2025-04-19 16:33] LABS: A/G RATIO 1.0 (0.9-1.6); ALANINE AMINOTRANSFERASE,ALT 30.0 IU/L (14-63); ASPARTATE AMNIOTRANSFERASE,AST 15.0 IU/L (15-37); BILIRUBIN TOTAL 0.7 mg/dL (0.2-1.0); BLOOD UREA NITROGEN,BUN 73.0 mg/dL (7.0-18.0); CARBON DIOXIDE,CO2 27.6 mmol/L (21.0-32.0); CHLORIDE,CL 107.0 mmol/L (98-107); CREATININE 1.4 mg/dL (0.8-1.3); EST CRCL DRUG DOSING (CG) 40.34 mL/min; GLUCOSE RANDOM 109.0 mg/dL (74-106); LACTIC ACID 2.2 mmol/L (0.4-2.0); POTASSIUM,K 3.7 mmol/L (3.5-5.1); PROTEIN TOTAL,TP 6.1 g/dL (6.4-8.2); SODIUM,NA 144.0 mmol/L (136-148)
[2025-04-19 16:34] LABS: ESTIMATED GFR 49.0 mL/min (>60)
[2025-04-19] MEDS: Pantoprazole 80 MG in Sodium Chloride 0.9% 20 ML IVPUSH ONE (16:38)
[2025-04-19] MEDS: Ondansetron 4 MG/2 ML SDV IVPUSH ONE (16:52)
[2025-04-19] MEDS: Iopamidol 755 Mg/ML 100 ML Bottle IVPUSH ONE (17:08)
[2025-04-19] MEDS: Factor IX Complex Human 500 UNIT VIAL IV ONE ×2 (17:25→17:44)
[2025-04-19 19:41] LABS: APPEARANCE,URINE CLEAR; GLUCOSE,URINE NEGATIVE (NEGATIVE); OCCULT BLOOD,URINE NEGATIVE (NEGATIVE)
== END 2025-04-19 20:11 ==
LOC: MW.ED 15:28
DX: K92.2 Gastrointestinal hemorrhage, unspecified (principal); I10 Essential (primary) hypertension; I48.91 Unspecified atrial fibrillation; E03.9 Hypothyroidism, unspecified; Z79.899 Other long term (current) drug therapy; Z91.010 Allergy to peanuts; Z79.01 Long term (current) use of anticoagulants; Z90.49 Acquired absence of other specified parts of digestive tract
CPT/HCPCS: 36415; 71045; 74174; 80053; 81003; 83605; 84484; 85025; 85610; 85730; 86850; 86900; 86901; 93005; 96374; 96375; 99285; J2405; J2470; J7168; Q9967

== ENCOUNTER 2025-05-16 09:21 | Inpatient (IN) | payer OTHER, MEDICARE ==
[2025-05-16] MEDS ORDERED: Sodium Chloride 0.9% 2.5 ML Syringe FLUSH PRN ×2 (09:26→12:55)
[2025-05-16] MEDS ORDERED: Sodium Chloride 0.9% 10 ML Syringe FLUSH PRN ×2 (09:26→12:55)
[2025-05-16 10:00] LABS: BASOPHILS ABSOLUTE AUTO 0.03 K/uL (0.00-0.20); BASOPHILS PERCENT AUTO 0.2 % (0.0-1.0); EOSINOPHILS ABSOLUTE AUTO 0.00 K/uL (0.00-0.45); EOSINOPHILS PERCENT AUTO 0.0 % (0.0-6.0); IMMATURE GRAN ABSOLUTE AUTO 0.11 K/uL (0.00-0.05); IMMATURE GRAN PERCENT AUTO 0.9 % (0.0-0.4); LYMPHOCYTES ABSOLUTE AUTO 0.49 K/uL (1.00-4.80); LYMPHOCYTES PERCENT AUTO 3.8 % (24.0-44.0); MEAN PLATELET VOLUME 10.5 fL (9.4-12.4); MONOCYTES ABSOLUTE AUTO 1.46 K/uL (0.00-0.80); MONOCYTES PERCENT AUTO 11.4 % (0.0-8.0); NEUTROPHILS ABSOLUTE AUTO 10.76 K/uL (1.80-7.70); NEUTROPHILS PERCENT AUTO 83.7 % (41.0-71.0); NRBC ABSOLUTE 0.00 K/uL (0.00-0.02); NRBC PERCENT 0.0 /100WBC (0.0-0.2); PLATELET COUNT,PLT 152 K/uL (150-400); RED BLOOD CELL COUNT 3.47 M/uL (4.52-5.90); WHITE BLOOD CELL COUNT,WBC 12.85 K/uL (3.9-11.3)
[2025-05-16 10:18] LABS: INR 1.29 (0.86-1.11)
[2025-05-16 10:35] LABS: A/G RATIO 0.8 (0.9-1.6); ALANINE AMINOTRANSFERASE,ALT 31.0 IU/L (14-63); ASPARTATE AMNIOTRANSFERASE,AST 39.0 IU/L (15-37); BILIRUBIN TOTAL 0.8 mg/dL (0.2-1.0); BLOOD UREA NITROGEN,BUN 18.0 mg/dL (7.0-18.0); CARBON DIOXIDE,CO2 23.2 mmol/L (21.0-32.0); CHLORIDE,CL 98.0 mmol/L (98-107); CREATININE 1.4 mg/dL (0.8-1.3); EST CRCL DRUG DOSING (CG) 40.34 mL/min; GLUCOSE RANDOM 121.0 mg/dL (74-106); POTASSIUM,K 3.6 mmol/L (3.5-5.1); PRO B-TYPE NATRIUR PEPT,BNPPRO 1142.0 pg/mL (0-450); PROTEIN TOTAL,TP 6.3 g/dL (6.4-8.2); SODIUM,NA 131.0 mmol/L (136-148)
[2025-05-16 10:38] LABS: ESTIMATED GFR 49.0 mL/min (>60)
[2025-05-16 10:47] LABS: APPEARANCE,URINE CLOUDY; GLUCOSE,URINE NEGATIVE (NEGATIVE); OCCULT BLOOD,URINE LARGE (NEGATIVE)
[2025-05-16 11:02] LABS: EPITHELIAL CELLS,URINE FEW (NONE-FEW)
[2025-05-16] MEDS ORDERED: Furosemide 20 MG/2 ML VIAL IVPUSH ONE (11:09)
[2025-05-16] MEDS: cefTRIAXone 2 GM in Water For Injection, Sterile 20 ML IVPUSH ONE (11:23)
[2025-05-16] MEDS: Furosemide 40 MG/4 ML VIAL IVPUSH ONE (11:24)
[2025-05-16] MEDS: Iopamidol 755 Mg/ML 100 ML Bottle IVPUSH ONE (12:18)
[2025-05-16] MEDS ORDERED: Ondansetron 4 MG Tab.DIS PO PRN (12:55)
[2025-05-17 06:07] LABS: MEAN PLATELET VOLUME 10.4 fL (9.4-12.4); NRBC ABSOLUTE 0.00 K/uL (0.00-0.02); NRBC PERCENT 0.0 /100WBC (0.0-0.2); PLATELET COUNT,PLT 142 K/uL (150-400); RED BLOOD CELL COUNT 3.31 M/uL (4.52-5.90); WHITE BLOOD CELL COUNT,WBC 19.44 K/uL (3.9-11.3)
[2025-05-17 06:40] LABS: A/G RATIO 0.8 (0.9-1.6); ALANINE AMINOTRANSFERASE,ALT 34.0 IU/L (14-63); ASPARTATE AMNIOTRANSFERASE,AST 42.0 IU/L (15-37); BILIRUBIN TOTAL 0.7 mg/dL (0.2-1.0); BLOOD UREA NITROGEN,BUN 17.0 mg/dL (7.0-18.0); CARBON DIOXIDE,CO2 25.5 mmol/L (21.0-32.0); CHLORIDE,CL 101.0 mmol/L (98-107); CREATININE 1.2 mg/dL (0.8-1.3); EST CRCL DRUG DOSING (CG) 46.87 mL/min; GLUCOSE RANDOM 115.0 mg/dL (74-106); POTASSIUM,K 3.4 mmol/L (3.5-5.1); PROTEIN TOTAL,TP 5.6 g/dL (6.4-8.2); SODIUM,NA 135.0 mmol/L (136-148)
[2025-05-17 06:48] LABS: ESTIMATED GFR 59.0 mL/min (>60)
[2025-05-17 07:46] LABS: BAND ABSOLUTE MAN 0.39; BAND PERCENT MAN 2 %; LYMPHOCYTES ABSOLUTE MAN 0.39 K/uL (1.00-4.80); LYMPHOCYTES PERCENT MAN 2 % (24-44); SEG NEUTROPHILS ABSOLUTE MAN 17.30 K/uL (1.80-7.70); SEG NEUTROPHILS PERCENT MAN 89 % (41-71)
[2025-05-17 07:47] LABS: MONOCYTES ABSOLUTE MAN 1.36 K/uL (0.00-0.80); MONOCYTES PERCENT MAN 7 % (0-8)
[2025-05-17] MEDS: Diltiazem 120 MG Cap.CD PO SCH (09:19)
[2025-05-17] MEDS: Potassium Chloride 10 MEQ Tab.ER PO SCH (09:20)
[2025-05-17] MEDS: Furosemide 40 MG/4 ML VIAL IVPUSH SCH ×2 (09:20→16:52)
[2025-05-17] MEDS: cefTRIAXone 2 GM in Water For Injection, Sterile 20 ML IVPUSH SCH (09:20)
[2025-05-17 12:14] LABS: MEAN PLATELET VOLUME 11.3 fL (9.4-12.4); NRBC ABSOLUTE 0.00 K/uL (0.00-0.02); NRBC PERCENT 0.0 /100WBC (0.0-0.2); PLATELET COUNT,PLT 155 K/uL (150-400); RED BLOOD CELL COUNT 3.49 M/uL (4.52-5.90); WHITE BLOOD CELL COUNT,WBC 19.61 K/uL (3.9-11.3)
[2025-05-17 12:40] LABS: BAND ABSOLUTE MAN 0.39; BAND PERCENT MAN 2 %; LYMPHOCYTES ABSOLUTE MAN 1.37 K/uL (1.00-4.80); LYMPHOCYTES PERCENT MAN 7 % (24-44); MONOCYTES ABSOLUTE MAN 1.57 K/uL (0.00-0.80); MONOCYTES PERCENT MAN 8 % (0-8); SEG NEUTROPHILS ABSOLUTE MAN 16.28 K/uL (1.80-7.70); SEG NEUTROPHILS PERCENT MAN 83 % (41-71)
[2025-05-18 05:44] LABS: MEAN PLATELET VOLUME 11.2 fL (9.4-12.4); NRBC ABSOLUTE 0.00 K/uL (0.00-0.02); NRBC PERCENT 0.0 /100WBC (0.0-0.2); PLATELET COUNT,PLT 180 K/uL (150-400); RED BLOOD CELL COUNT 3.73 M/uL (4.52-5.90); WHITE BLOOD CELL COUNT,WBC 15.07 K/uL (3.9-11.3)
[2025-05-18 06:09] LABS: A/G RATIO 0.7 (0.9-1.6); ALANINE AMINOTRANSFERASE,ALT 34.0 IU/L (14-63); ASPARTATE AMNIOTRANSFERASE,AST 35.0 IU/L (15-37); BILIRUBIN TOTAL 0.5 mg/dL (0.2-1.0); BLOOD UREA NITROGEN,BUN 20.0 mg/dL (7.0-18.0); CARBON DIOXIDE,CO2 28.5 mmol/L (21.0-32.0); CHLORIDE,CL 101.0 mmol/L (98-107); CREATININE 1.3 mg/dL (0.8-1.3); EST CRCL DRUG DOSING (CG) 43.44 mL/min; GLUCOSE RANDOM 114.0 mg/dL (74-106); POTASSIUM,K 2.9 mmol/L (3.5-5.1); PROTEIN TOTAL,TP 5.9 g/dL (6.4-8.2); SODIUM,NA 136.0 mmol/L (136-148)
[2025-05-18 06:35] LABS: ESTIMATED GFR 54.0 mL/min (>60)
[2025-05-18 06:51] LABS: BASOPHILS ABSOLUTE MAN 0.00 K/uL (0.00-0.20); BASOPHILS PERCENT MAN 0 % (0-1); EOSINOPHILS ABSOLUTE MAN 0.00 K/uL (0.00-0.45); EOSINOPHILS PERCENT MAN 0 % (0-6); LYMPHOCYTES ABSOLUTE MAN 0.60 K/uL (1.00-4.80); LYMPHOCYTES PERCENT MAN 4 % (24-44); MONOCYTES ABSOLUTE MAN 2.11 K/uL (0.00-0.80); MONOCYTES PERCENT MAN 14 % (0-8); SEG NEUTROPHILS ABSOLUTE MAN 12.36 K/uL (1.80-7.70); SEG NEUTROPHILS PERCENT MAN 82 % (41-71)
[2025-05-18] MEDS: Potassium Chloride 20 MEQ Tab.ER PO ONE ×2 (06:55→14:57)
[2025-05-18] MEDS: Potassium Chloride 20 MEQ Tab.ER ONE (14:50)
[2025-05-18] MEDS: Furosemide 40 MG/4 ML VIAL IVPUSH SCH (15:01)
[2025-05-19 05:47] LABS: BASOPHILS ABSOLUTE AUTO 0.08 K/uL (0.00-0.20); BASOPHILS PERCENT AUTO 0.7 % (0.0-1.0); EOSINOPHILS ABSOLUTE AUTO 0.42 K/uL (0.00-0.45); EOSINOPHILS PERCENT AUTO 3.6 % (0.0-6.0); IMMATURE GRAN ABSOLUTE AUTO 0.25 K/uL (0.00-0.05); IMMATURE GRAN PERCENT AUTO 2.2 % (0.0-0.4); LYMPHOCYTES ABSOLUTE AUTO 1.44 K/uL (1.00-4.80); LYMPHOCYTES PERCENT AUTO 12.5 % (24.0-44.0); MEAN PLATELET VOLUME 11.5 fL (9.4-12.4); MONOCYTES ABSOLUTE AUTO 1.48 K/uL (0.00-0.80); MONOCYTES PERCENT AUTO 12.8 % (0.0-8.0); NEUTROPHILS ABSOLUTE AUTO 7.89 K/uL (1.80-7.70); NEUTROPHILS PERCENT AUTO 68.2 % (41.0-71.0); NRBC ABSOLUTE 0.00 K/uL (0.00-0.02); NRBC PERCENT 0.0 /100WBC (0.0-0.2); PLATELET COUNT,PLT 186 K/uL (150-400); RED BLOOD CELL COUNT 3.67 M/uL (4.52-5.90); WHITE BLOOD CELL COUNT,WBC 11.56 K/uL (3.9-11.3)
[2025-05-19 06:25] LABS: A/G RATIO 0.7 (0.9-1.6); ALANINE AMINOTRANSFERASE,ALT 36.0 IU/L (14-63); ASPARTATE AMNIOTRANSFERASE,AST 38.0 IU/L (15-37); BILIRUBIN TOTAL 0.4 mg/dL (0.2-1.0); BLOOD UREA NITROGEN,BUN 22.0 mg/dL (7.0-18.0); CARBON DIOXIDE,CO2 28.2 mmol/L (21.0-32.0); CHLORIDE,CL 102.0 mmol/L (98-107); CREATININE 1.1 mg/dL (0.8-1.3); EST CRCL DRUG DOSING (CG) 51.34 mL/min; GLUCOSE RANDOM 106.0 mg/dL (74-106); POTASSIUM,K 3.2 mmol/L (3.5-5.1); PROTEIN TOTAL,TP 5.7 g/dL (6.4-8.2); SODIUM,NA 137.0 mmol/L (136-148)
[2025-05-19 06:26] LABS: ESTIMATED GFR 65.0 mL/min (>60)
[2025-05-19] MEDS: Potassium Chloride 20 MEQ Tab.ER PO ONE (08:34)
== END 2025-05-19 14:30 | disposition home or self-care (01) | DRG 193 ==
LOC: MW.ED 09:21 → MW.MS 13:08
PROVIDERS: ADMIT Family Medicine; ATTEND Family Medicine
DX: J18.9 Pneumonia, unspecified organism (principal); I50.33 Acute on chronic diastolic (congestive) heart failure; D72.829 Elevated white blood cell count, unspecified; E87.20 Acidosis, unspecified; N17.9 Acute kidney failure, unspecified; R35.0 Frequency of micturition; R30.0 Dysuria; R74.02 Elevation of levels of lactic acid dehydrogenase [LDH]; N39.0 Urinary tract infection, site not specified; I11.0 Hypertensive heart disease with heart failure; I50.9 Heart failure, unspecified; I25.10 Atherosclerotic heart disease of native coronary artery without angina pectoris; K44.9 Diaphragmatic hernia without obstruction or gangrene; D50.9 Iron deficiency anemia, unspecified; Z91.010 Allergy to peanuts; Z79.01 Long term (current) use of anticoagulants; Z79.890 Hormone replacement therapy; Z79.899 Other long term (current) drug therapy; Z85.46 Personal history of malignant neoplasm of prostate; Z98.890 Other specified postprocedural states; I48.91 Unspecified atrial fibrillation; K21.9 Gastro-esophageal reflux disease without esophagitis; E03.9 Hypothyroidism, unspecified; Z90.49 Acquired absence of other specified parts of digestive tract
CPT/HCPCS: 36415; 71045; 71275; 80053; 81001; 83605; 83690; 83735; 83880; 84484; 85025; 85610; 87040 ×2; 87086; 87428; 93005; 96365; 96375; 99285; A4216; J0696; J1271; J1938; Q9967; 93306; 99223; 99232; 99239; A9270-GY; J0456; J7030; J7050